=== PATIENT | male | born 1965 | race African-American/Black ===

== ENCOUNTER 2017-03-30 17:55 | Emergency (ER) | payer SELFPAY ==
[2017-03-30 19:32] LABS: Hematocrit 41 % (42-52); Hemoglobin 13.9 g/dl (14.0-18.0); Mean Corpuscular HGB Conc 34 g/dl (31-36); Mean Corpuscular Hemoglobin 30 pg (27-31); Mean Corpuscular Volume 88 fL (80-94); Mean Platelet Volume 8 um3 (7.4-10.4); Red Blood Count 4.67 10^6/ul (4.0-5.4); Red Cell Distribution Width 14 % (10.5-15); White Blood Count 7.9 10^3/ul (3.5-10.8)
--- NOTE | 2017-03-30 19:44 | RAD ---
INDICATION: Chest pain. COMPARISON: Comparison is made with a prior study from May 20, 2016. TECHNIQUE: A portable view of the chest was obtained. FINDINGS: Cardiac and mediastinal contours appear to be within normal limits. The lungs are clear. No pleural effusion is seen. IMPRESSION: NO EVIDENCE FOR ACUTE DISEASE.
[2017-03-30 19:53] LABS: ALT 57 U/L (7-52); Albumin 3.9 g/dL (3.2-5.2); Alkaline Phosphatase 69 U/L (34-104); BUN/Creatinine Ratio 21.9 (8-20); Blood Urea Nitrogen 21 mg/dL (6-24); CO2 Carbon Dioxide 27 mmol/L (22-32); Calcium 8.9 mg/dL (8.6-10.3); Chloride 105 mmol/L (101-111); EGFR African American 106.6 (>60); EGFR Non-African American 82.9 (>60); Globulin 3.4 g/dL (2-4); Glucose 100 mg/dL (70-100); Sodium 138 mmol/L (133-145); Total Protein 7.3 g/dL (6.4-8.9)
[2017-03-30 20:15] LABS: Anion Gap 6 mmol/L (2-11)
[2017-03-30 20:59] VITALS: BP 122/68
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
== END 2017-03-30 21:08 | disposition home or self-care (01) ==
LOC: ED 17:55
DX: R07.89 Other chest pain (principal); R06.02 Shortness of breath
CPT/HCPCS: 36415; 71010; 80053; 83605; 84484; 85025; 93005; 99283

== ENCOUNTER 2017-08-18 11:31 | Day surgery (SDC) | payer BC ==
--- NOTE | 2017-07-24 21:57 | HP ---
CC: Dr. Ochoa * HISTORY AND PHYSICAL: DATE OF PLANNED ADMISSION AND SURGERY: 08/02/17 HISTORY OF PRESENT ILLNESS: Mr. Polo is a 52-year-old male who is admitted with right renal calculus for shockwave lithotripsy. Mr. Polo was referred to me by Dr Ochoa in October 2013 because of asymptomatic gross hematuria. At that time, he was worked up and had a renal ultrasound, which was normal and a cystoscopy, which showed some prostate enlargement and increased vascularity of the prostate, but no other abnormalities. He did well and the gross hematuria did not recur. He presented to my office again referred by Dr. Ochoa about 5 months ago because of recurrent episodes of gross painless hematuria. He had a workup with cystoscopy, which again showed some slight prostate enlargement and increased vascularity, but no bleeding was noted from it. The bladder looked normal. There were no suspicious of bladder lesions. CT urogram showed an 8-mm nonobstructing calculus in the right kidney and two calculi measuring 4 to 5 mm each in the left kidney. There were no hydronephrosis, no renal masses and no abnormal filling defects in the collecting systems or in the ureters. His blood work was also or within normal. The only abnormality noted on the work-up for the gross hematuria has been the renal calculi. I discussed the options of management of the renal calculi namely observation versus shockwave lithotripsy, and considering the size of the right renal calculus decision was made to proceed with the shockwave lithotripsy. PAST MEDICAL HISTORY AND SYSTEMS REVIEW: He is generally healthy. He has chronic arthritis and pain and is maintained on ibuprofen and on gabapentin. He is also hypertensive, maintained on Norvasc 10 mg daily and atenolol 50 mg daily. He denies any cardiac or pulmonary diseases or symptoms. He denies any allergies to medications. He is a nonsmoker. PHYSICAL EXAMINATION GENERAL: Obese black male who looks his age. VITAL SIGNS: Blood pressure 130/80, pulse of 78. LUNGS: Clear. HEART: Regular and rhythmic. No murmurs. ABDOMEN: Soft. No masses, no tenderness and no CVA tenderness. EXTERNAL GENITALIA: Normal. IMPRESSION: An 8-mm radiopaque nonobstructing calculus in the right kidney with recurrent episodes of painless gross hematuria. Nonobstructing small calculi in the left kidney. Hypertension, well controlled on treatment. PLAN: Considering the size of the right renal calculus, which makes it unlikely to pass spontaneously if it drops into the ureter, the plan is to perform shockwave lithotripsy. I discussed the indication, the procedure and the potential complications, including possible post-op right renal colic and hematuria. All his questions were answered. [id number]/CPS #: [id number] SHERRILL
[~2017-08-18 11:31] MED LIST: Buffered Lidocaine 0.9% SYRIN* 5 ML/SYR SYRINGE INTRADERM ONE; Dexamethasone IV* 4 MG/ML 1 ML (4 MG) IV SLOW PU ONE; Famotidine IV* 10 MG/ML 2 ML (20 mg) IV ONE
[2017-08-18] MEDS ORDERED: Famotidine IV* 10 MG/ML 2 ML (20 mg) ONE (12:26)
[2017-08-18] MEDS ORDERED: Dexamethasone IV* 4 MG/ML 1 ML (4 MG) ONE (12:26)
[2017-08-18] MEDS ORDERED: cefTRIAXone(*) 2 GM ADDV.VIAL IVPB ONE (12:39)
--- NOTE | 2017-08-18 13:39 | RAD ---
HISTORY: Shock wave lithotripsy COMPARISONS: February 22, 2017 VIEWS: Frontal views of the abdomen. FINDINGS: BOWEL: There is a nonspecific bowel gas pattern, with nondilated small bowel gas noted. CALCULI: Again noted are calculi overlying the renal parenchymal shadow as bilaterally measuring up to 0.6 cm on the left and 0.9 cm on the right. These are stable. BONES AND SOFT TISSUES: Degenerative changes are noted of the spine OTHER FINDINGS: The lung bases are clear. There is no subphrenic gas. IMPRESSION: BILATERAL NEPHROLITHIASIS.
[2017-08-18] MEDS ORDERED: Scopolamine 1.5 mg* PATCH ONE (13:47)
[2017-08-18] MEDS ORDERED: PROCHLORPERAZINE INJ 5 MG/ML 2 ML VIAL IV PRN (13:55)
[2017-08-18] MEDS ORDERED: Ketorolac INJ* 30 MG/ML 1 ML VIAL IV PRN (13:55)
[2017-08-18] MEDS ORDERED: Naloxone* 0.4 MG/ML 1 ML VIAL IV PRN (13:55)
[2017-08-18] MEDS ORDERED: Acetaminophen IV 1GM/100ML * 1,000 MG/100 ML VIAL IVPB ONE (13:55)
[2017-08-18] MEDS ORDERED: Scopolamine 1.5 mg* PATCH TRANSDERM SCH (14:00)
[2017-08-18] MEDS ORDERED: Scopolamine PATCH Remove* 1 NOTE MISC PATCH OFF SCH (14:00)
[2017-08-18] MEDS ORDERED: Propofol* 10 MG/ML 20 ML BTL IV PUSH ONE (14:11)
[2017-08-18] MEDS ORDERED: Lidocaine 2% PF * 5 ML VIAL ONE (14:11)
[2017-08-18] MEDS ORDERED: fentaNYL* 50 MCG/ML 2 ML VIAL (100 MCG VIAL) ONE (14:12)
[2017-08-18] MEDS ORDERED: EPHEDrine (Pressors)* 50 MG/ML VIAL ONE (15:06)
[2017-08-18] MEDS ORDERED: Ondansetron INJ* 2 MG/ML VIAL ONE (15:13)
[2017-08-18] MEDS ORDERED: Phenylephrine IV* 40 MCG/ML 10 ML SYRINGE ONE (15:22)
[2017-08-18 17:05] VITALS: BP 137/79
--- NOTE | 2017-08-19 03:19 | OP ---
CC: Dr. Ochoa * DATE OF OPERATION: 08/18/17 - SDS DATE OF : 67 SURGEON: Maximo Melton MD ANESTHESIOLOGIST: Dr. Raman Reyes MD ANESTHESIA: General. PRE-OP DIAGNOSIS: Right renal calculus (1 cm). POST-OP DIAGNOSIS: Right renal calculus (1 cm). OPERATIVE PROCEDURE: Shockwave lithotripsy of right renal calculus (1 cm). INDICATION FOR PROCEDURE: Mr. Polo is a 52-year-old male, who was worked up in 2013 and again 5 months ago because of recurrent episodes of gross painless hematuria. The cystoscopy and CT urogram showed bilateral renal calculi as the only pathology. There was an 8 to 10 mm calculus in the right kidney and 2 calculi measuring about 5 mm each in the left kidney. There was no associated hydronephrosis. Because of the above history and finding and the size of the stone of the right renal calculus, shock wave lithotripsy was advised and accepted. PATHOLOGY: Preoperative KUB showed a radiopaque calculus in the area of the right kidney consistent with the finding on the CT. DESCRIPTION OF PROCEDURE: After successful general anesthesia, the patient was placed in the supine position on the shockwave lithotripsy table. The right renal calculus was visualized in both the PA and the oblique x-ray views and the position of the patient and the generator were adjusted to have this stone in the focus of the shock waves. Because of occurrence of PVCs, the shock waves were coupled with EKG and the shockwave rate was about 70 per minute. There were no additional PVCs. The proper positioning and fragmentation of the stone were monitored periodically. A total of 2400 shocks were then delivered. At the completion of the treatment , there seemed to be good fragmentation of the stone. The patient tolerated the procedure well and left the operating room in good condition. The plan is to see the patient next week in the office in 1 week and he will have a followup KUB. [id number]/CPS #: [id number] MTDD
== END 2017-08-18 17:06 | disposition home or self-care (01) ==
LOC: OR 11:31
PROVIDERS: ATTEND Urology
DX: N20.0 Calculus of kidney (principal); R31.0 Gross hematuria; I49.3 Ventricular premature depolarization; I10 Essential (primary) hypertension; M19.90 Unspecified osteoarthritis, unspecified site; E66.01 Morbid (severe) obesity due to excess calories
CPT/HCPCS: 74018; A9270-GY; J0696; J1100; J2405; J2704; J3010

== ENCOUNTER 2018-02-15 09:40 | Emergency (ER) | payer BC, OTHER ==
[2018-02-15 10:01] VITALS: BP 137/93
[2018-02-15] MEDS ORDERED: diPHENhydraMINE PO* 50 MG PO ONE (10:06)
[2018-02-15] MEDS ORDERED: predniSONE TAB* 20 MG PO ONE (10:06)
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
== END 2018-02-15 10:54 | disposition home or self-care (01) ==
LOC: UCEAST 09:40
DX: T63.441A Toxic effect of venom of bees, accidental (unintentional), initial encounter (principal); M79.89 Other specified soft tissue disorders; R07.89 Other chest pain; Z91.030 Bee allergy status; I10 Essential (primary) hypertension; Z88.5 Allergy status to narcotic agent; Y92.9 Unspecified place or not applicable
CPT/HCPCS: 99202; A9270-GY; G0463; J7512

== ENCOUNTER 2018-02-23 20:48 | Emergency (ER) | payer BC, OTHER ==
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
[2018-02-23 22:58] VITALS: BP 149/82
--- NOTE | 2018-02-24 07:20 | RAD ---
INDICATION: Right lower extremity pain. COMPARISON: There are no prior studies available for comparison. TECHNIQUE: Multiple real-time, color flow and Doppler tracings of the right lower extremity were obtained. FINDINGS: The common femoral, femoral, profunda femoral and popliteal veins all demonstrate normal compressibility, augmentation with compression and phasic response with respiration. The posterior tibial veins demonstrate normal compressibility and augmentation with compression. The right peroneal veins were nonvisualized due to the patient's body habitus. IMPRESSION: LIMITED EXAM OF THE CALF, NO EVIDENCE FOR DEEP VENOUS THROMBOSIS.
== END 2018-02-23 22:56 | disposition home or self-care (01) ==
LOC: ED 20:48
DX: M79.89 Other specified soft tissue disorders (principal); M25.561 Pain in right knee; I10 Essential (primary) hypertension; Z87.442 Personal history of urinary calculi; Z91.030 Bee allergy status; Z82.49 Family history of ischemic heart disease and other diseases of the circulatory system
CPT/HCPCS: 99283

== ENCOUNTER 2018-05-23 06:44 | Day surgery (SDC) | payer BC ==
--- NOTE | 2018-05-15 22:53 | HP ---
CC: Dr. Ochoa * HISTORY AND PHYSICAL: DATE OF PLANNED ADMISSION AND SURGERY: 05/23/18 HISTORY OF PRESENT ILLNESS: Mr. Polo is a 52-year-old male who is admitted with a left renal calculus for cystoscopy, placement of left ureteral stent, and shockwave lithotripsy. Mr. Polo is a known stone former and in August 2017 required shockwave lithotripsy of a 1 cm right renal calculus. He had good result with passage of all the stone fragments. On his followup, he was noted to have episodes of gross hematuria associated with left flank pain. He was worked up with a CT urogram, which showed a 1-cm calculus non obstructing in the left renal pelvis and a 7- mm calculus in the upper pole of the left kidney. There were no other abnormalities noted and no abnormal filling defects in the ureters or in the collecting systems. The patient had a KUB, which confirmed the presence of a radiopaque calculus in the area of the left renal pelvis and another smaller calculus in the upper pole calyx of the left kidney. Because of the above findings, the patient is admitted for the above procedures. PAST MEDICAL HISTORY AND SYSTEM REVIEW: He is morbidly obese. He is hypertensive, maintained on Norvasc 10 mg daily and atenolol 50 mg daily. He has a chronic arthritis and is maintained on ibuprofen and gabapentin. He denies any cardiac or pulmonary diseases or symptoms. He is a nonsmoker. He denies any allergies to medications. PHYSICAL EXAMINATION GENERAL: An obese black male, who looks his age. VITAL SIGNS: Blood pressure 120/80, pulse 60. LUNGS: Clear. HEART: Regular and rhythmic. No murmurs. ABDOMEN: Soft. No masses, no tenderness, and no CVA tenderness. RECTAL: Had previously shown a nonenlarged and nonsuspicious prostate. IMPRESSION: A 1-cm calculus in the left renal pelvis and a 7-mm calculus in the upper pole calyx of the left kidney. PLAN: Plan is for cystoscopy, placement of left ureteral stent followed by shockwave lithotripsy of the left renal calculi. I discussed the above plans in detail with the patient. All his questions were answered. [id number]/[facility] #: [id number] [facility]ITALS[facility]
[2018-05-23] MEDS ORDERED: Famotidine IV* 10 MG/ML 2 ML (20 mg) ONE (07:02)
[2018-05-23] MEDS ORDERED: Buffered Lidocaine 0.9% SYRIN* 5 ML/SYR SYRINGE ONE (07:02)
[2018-05-23] MEDS ORDERED: Dexamethasone IV* 4 MG/ML 1 ML (4 MG) ONE (07:02)
[2018-05-23] MEDS ORDERED: cefTRIAXone(*) 2 GM ADDV.VIAL IVPB ONE (07:02)
[2018-05-23] MEDS ORDERED: Scopolamine 1.5 mg* PATCH ONE (07:43)
[2018-05-23] MEDS ORDERED: Scopolamine 1.5 mg* PATCH TRANSDERM SCH (08:00)
[2018-05-23] MEDS ORDERED: Ondansetron INJ* 2 MG/ML VIAL ONE (08:31)
[2018-05-23] MEDS ORDERED: Midazolam* 1 MG/ML 5 ML VIAL (5 MG) ONE (08:31)
[2018-05-23] MEDS ORDERED: Lidocaine 2% PF * 5 ML VIAL ONE (08:31)
[2018-05-23] MEDS ORDERED: fentaNYL* 50 MCG/ML 2 ML VIAL (100 MCG VIAL) ONE ×2 (08:31→09:19)
[2018-05-23] MEDS ORDERED: Propofol* 10 MG/ML 20 ML BTL IV PUSH ONE (08:31)
[2018-05-23] MEDS ORDERED: Atracurium* 10 MG/ML 10 ML VIAL ONE (08:34)
[2018-05-23] MEDS ORDERED: Iohexol 180 (CONTRAST) 10 ML SDV IV ONE (08:40)
[2018-05-23] MEDS ORDERED: fentaNYL* 50 MCG/ML 2 ML VIAL (100 MCG VIAL) IV PRN (09:00)
[2018-05-23] MEDS ORDERED: DiMENhydriNATE IV* 50 MG/ML VIAL IV PUSH PRN (09:00)
[2018-05-23] MEDS ORDERED: Ondansetron INJ* 2 MG/ML VIAL IV PRN (09:00)
[2018-05-23] MEDS ORDERED: oxyCODONE/Acetamin 5/325 MG* TAB PO PRN (09:00)
[2018-05-23] MEDS ORDERED: Naloxone* 0.4 MG/ML 1 ML VIAL IV PRN (09:00)
[2018-05-23 11:34] VITALS: BP 121/105
--- NOTE | 2018-05-23 12:24 | RAD ---
Indication: Post stent confirmation. Single view of the abdomen demonstrates left ureteral stent in place. Calcifications overlying the lower pole of left kidney and overlying the left hemipelvis is noted. Psoas margins are intact. IMPRESSION: Calcifications lower pole left kidney. Left ureteral stent in place.
--- NOTE | 2018-05-23 14:50 | OP ---
CC: Dr. Ochoa's Office * DATE OF OPERATION: 05/23/18 - SDS DATE OF : 67 SURGEON: Maximo Melton MD ANESTHESIOLOGIST: Dr. Jaime Osuna. ANESTHESIA: General. PRE-OP DIAGNOSIS: Left renal calculus (1 cm, ureteropelvic junction level). POST-OP DIAGNOSIS: Left renal calculus (1 cm, ureteropelvic junction level). OPERATIVE PROCEDURE: 1. Shock-wave lithotripsy of left renal calculus (1 cm UPJ). 2. Cystoscopy and placement of left ureteral stent (6-South African). INDICATION FOR PROCEDURE: Mr. Polo is a 53-year-old male who is a known stone former and who had required shock-wave lithotripsy of a 1 cm right renal calculus in August 2017. He had recent episodes of gross hematuria associated with left flank pain. CT urogram showed a 1 cm partially-obstructing calculus at the left ureteropelvic junction and another 7 mm calculus in the upper pole calyx of the left kidney. Because of the above history and finding, the above operation was advised and accepted. PATHOLOGY AT FLUOROSCOPY: A 1 cm radiopaque calculus was noted in the area of the left UPJ. The calculus in the upper pole of the left kidney was not well visualized. At cystoscopy, there were two soft strictures noted in the bulbar urethra. They were easy to bypass with the cystoscope. The prostatic urethra measured about 2.5 cm in length and there was moderate obstruction by elevation of the bladder neck. Examination of the bladder showed normal ureteral orifices. There were no suspicious bladder lesions noted. No calculi or diverticula were seen. DESCRIPTION OF PROCEDURE: After successful general anesthesia, the patient was placed in the supine position on the shock-wave lithotripsy table. The left renal calculus was visualized on fluoroscopy in both the PA and oblique x-ray views. The position of the patient and the generator were adjusted to have the stone in the focus of the shock-wave. At total of 2,000 shocks were then delivered at the rate of 60 shocks per minute. The proper positioning and fragmentation of the stone were monitored periodically. At 2,000 shocks, there seemed to be very good fragmentation of the stone with the fragments taking the shape of the UPJ. The patient was then placed in the lithotomy position. He was prepped and draped for a cystoscopy. A 19-[place] African cystoscope was then passed under direct vision and the findings in the urethra and the bladder were noted. The flexible-tipped guidewire was then passed into the left orifice and positioned in the area of the renal pelvis under fluoroscopy guidance. Retrograde pyelography was then performed. A size 6-[place] African stent was then placed with the proximal end coiling in the renal pelvis and the distal end coiling inside the bladder. There was bloody efflux noted from the left kidney. The bladder was then emptied and the cystoscope was removed. The patient tolerated the procedure well and left the operating room in good condition. The plan is to obtain a KUB before the patient's discharge. If it confirms the good fragmentation of the stone, the plan is to remove the stent next week in the office under local anesthesia. [id number]/[facility] #: [id number] [facility]
== END 2018-05-23 12:00 | disposition home or self-care (01) ==
LOC: OR 06:44
PROVIDERS: ATTEND Urology
DX: N20.0 Calculus of kidney (principal); R31.0 Gross hematuria; Z87.442 Personal history of urinary calculi; I10 Essential (primary) hypertension; E66.01 Morbid (severe) obesity due to excess calories
CPT/HCPCS: 74018; A9270-GY; C1876; J0696; J1100; J2250; J2405; J2704; J3010